=== PATIENT | male | born 1935 ===

== ENCOUNTER 2023-03-31 12:36 | Outpatient (CLI) | payer MEDICARE, BC ==
[~2023-03-31 12:36] MED LIST: Iopamidol 370 76% 100 ML VIAL ONE
== END 2023-03-31 12:37 | disposition home or self-care (01) ==
LOC: CT 12:36
PROVIDERS: ATTEND Internal Medicine Cardiovascular Disease
DX: I71.21 Aneurysm of the ascending aorta, without rupture (principal); I77.819 Aortic ectasia, unspecified site; I72.3 Aneurysm of iliac artery; E04.1 Nontoxic single thyroid nodule; K80.20 Calculus of gallbladder without cholecystitis without obstruction; Z95.828 Presence of other vascular implants and grafts
CPT/HCPCS: 71275; 74175; 82565

== ENCOUNTER 2024-02-05 12:45 | Outpatient (CLI) | payer MEDICARE, BC | END 2024-02-05 12:46 | disposition home or self-care (01) | LOC: CT 12:45 | PROVIDERS: ATTEND Internal Medicine Cardiovascular Disease | DX: L97.921 Non-pressure chronic ulcer of unspecified part of left lower leg limited to breakdown of skin (principal); I72.8 Aneurysm of other specified arteries; I77.89 Other specified disorders of arteries and arterioles; M79.89 Other specified soft tissue disorders | CPT/HCPCS: 82565; Q9967 ==